=== PATIENT | male | born 1940 | race Caucasian/White ===

== ENCOUNTER 2025-01-28 18:19 | Observation (INO) ==
[2025-01-28 20:43] LABS: MEAN PLATELET VOLUME 8.0 fL (7.4-11.0); RED CELL DISTRIBUTION WIDTH 12.9 % (11.6-16.5)
[2025-01-28 20:50] LABS: COR CA(FOR HYPOALB) 9.4 mg/dL (8.5-10.1); CREATININE 1.56 mg/dL (0.70-1.30); eGFR NON BLACK RACES 46 (>60)
[2025-01-28] MEDS ORDERED: VALIUM PO PRN (20:52)
[2025-01-28] MEDS: NS 1,000 ML IV 1,000 ML IV SCH (22:09)
[2025-01-28] MEDS: ZOSYN VIAL 3.375 GRAMS 3.375 G in NS 100 ML IV 100 ML IV SCH (22:10)
[2025-01-28] MEDS: NS 250 ML IV 25 ML IV PRN (22:10)
[2025-01-28] MEDS: MORPHINE SULFATE INJ 2 MG INJ IVP PRN (22:11)
[2025-01-28] MEDS: PROTONIX INJ 40 MG VIAL IVP SCH (22:13)
[2025-01-28] MEDS: ZOFRAN INJ 4 MG VIAL IVP PRN (22:13)
[2025-01-28] MEDS: ZESTRIL TAB 10 MG PO ONE (23:50)
[2025-01-29] MEDS ORDERED: ROBAXIN PO PRN
[2025-01-29] MEDS: FLOMAX PO SCH ×2 (00:47→10:02)
[2025-01-29 01:53] LABS: BLOOD/HEMOGLOBIN,URINE 2+ (NEGATIVE); LEUKOCYTE ESTERASE ,URINE NEGATIVE (NEGATIVE); NITRITES,URINE NEGATIVE (NEGATIVE)
[2025-01-29 01:54] LABS: APPEARANCE,URINE SLIGHTLY HAZY (CLEAR)
[2025-01-29 02:05] LABS: SQUAMOUS EPITHELIAL CELL,UR NEGATIVE /HPF (NEGATIVE)
[2025-01-29 05:12] LABS: MEAN PLATELET VOLUME 9.0 fL (7.4-11.0); RED CELL DISTRIBUTION WIDTH 12.8 % (11.6-16.5)
[2025-01-29 05:28] LABS: COR CA(FOR HYPOALB) 9.4 mg/dL (8.5-10.1); CREATININE 1.50 mg/dL (0.70-1.30); eGFR NON BLACK RACES 48 (>60)
--- NOTE | 2025-01-29 05:36 | RAD ---
EXAM: KUB HISTORY: Colitis; SX: LEFT ROTATOR CUFF X 12 DAYS AGO COMPARISON: None FINDINGS: Evaluation of the abdomen demonstrates a nonobstructive bowel gas pattern. Moderate colonic fecal burden. No evidence of pneumoperitoneum. No pathologic soft tissue calcification. No acute osseous abnormality. Residual contrast in the bladder lumen. IMPRESSION: No acute abdominal process. THIS IS AN ELECTRONICALLY VERIFIED FINAL REPORT 01/29/2025 5:32 AM - Electronically signed by Elmer Lincoln MD
[2025-01-29 06:35] LABS: CRYPTOSPORIDIUM PARVUM ANTIGEN NEGATIVE (NEGATIVE); GIARDIA LAMBLIA ANTIGEN NEGATIVE (NEGATIVE)
[2025-01-29 07:42] VITALS: BMI 26.3
[2025-01-29] MEDS ORDERED: REVATIO PO SCH (09:00)
[2025-01-29] MEDS ORDERED: HYDROCHLOROTHIAZIDE 25 MG TAB PO SCH (09:00)
[2025-01-29] MEDS ORDERED: PHARMACY CONSULT XX SCH (10:00)
[2025-01-29] MEDS: LOVENOX INJ 40 MG SYR SC SCH (10:01)
[2025-01-29] MEDS: ZEBETA TAB 5 MG PO SCH (10:03)
[2025-01-29] MEDS: SENOKOT PO SCH (10:03)
[2025-01-29] MEDS: ZOCOR TAB 40 MG PO SCH (10:03)
[2025-01-29] MEDS: PROCTOFOAM HC EXT SCH (10:04)
[2025-01-29] MEDS: ROXICODONE TAB 5 MG PO PRN (12:54)
[2025-01-29] MEDS: ROBAXIN PO SCH (12:55)
--- NOTE | 2025-01-29 17:26 | DR.H&P ---
H&P History & Physical for Day of: H&P Date: 01/28/25 Chief Complaint Chief Complaint: abdominal pain, diarrhea, fever, urinary retention History of Present Illness History of Present Illness: PT IS 84 WM, DIRECT ADMIT FROM DR GOLDBERG'S OFFICE WITH CO SEVERE ABDOMINAL PAIN WITH DIARRHEA, FEVER, CHILLS FOR 3 DAYS. PT WAS SEEN IN ER IN [place] X 2. PT HAD CT ABD/PELVIS IN ER AND GIVEN BACTRIM DS. PT STATES HE HAD LEFT ROTATOR CUFF REPAIR 2 WEEKS AGO. PT HAD BEEN ON PO PAIN CONTROL, RESULTING IN SEVERE CONSTIPATION AND URINARY BLADDER RETENTION. PT ADMITTED FOR EVALUATION AND TREATMENT OF ACUTE ILLNESS. Past Surgical History Surgical History: Ortho Surgery Family History Family Medical History: Cancer, [place] and Hypertension Social History Does patient currently use any type of tobacco product: No Type of Tobacco Use: None Does any household member use tobacco: No Alcohol Use: None Drug Use: None Medications Home Medications: Home Medications Medication Instructions Recorded Confirmed Type levothyroxine 75 mcg tablet 75 mcg PO QDAY 11/28/24 History sildenafil 100 mg tablet 100 mg PO QDAY 11/28/2401/07 History simvastatin 80 mg tablet 80 mg PO QDAY 11/28/2401/28 History tamsulosin 0.4 mg capsule 0.4 mg PO QPM 11/28/2401/28 History lisinopril 10 mg tablet 10 mg PO BID 01/28/25 History methocarbamol 750 mg tablet 750 mg PO TID PRN muscle s pasm 01/28/25 01/28/25 History Allergies Allergies Allergy/AdvReac Type Severity Reaction Status Date / Time No Known Drug Allergies Allergy Unknown Verified 01/28/25 21:41 codeine AdvReac Severe Verified 01/28/25 21:41 Labs 01/29/25 04:13 01/29/25 04:13 Labs: 01/29/25 05:20 Stool - Final Laboratory WBC 10.0 X10^3/uL (3.6-10.0) 01/29/25 04:13 RBC 3.84 X10^6/uL (4.7-6.0) L 01/29/25 04:13 Hgb 11.3 g/dL (13.5-18.0) L 01/29/25 04:13 Hct 32.6 % (42.0-54.0) L 01/29/25 04:13 MCV 84.9 fL (80.0-100.0) 01/29/25 04:13 MCH 29.5 pg (27.0-34.0) 01/29/25 04:13 MCHC 34.7 g/dL (33.0-35.0) 01/29/25 04:13 RDW 12.8 % (11.6-16.5) 01/29/25 04:13 Plt Count 211 X10^3/uL (150.0-450.0) 01/29/25 04:13 MPV 9.0 fL (7.4-11.0) 01/29/25 04:13 Neut % (Auto) 80.5 % (42.0-75.0) H 01/29/25 04:13 Lymph % (Auto) 9.0 % (21.0-51.0) L 01/29/25 04:13 [place] % (Auto) 7.9 % (0.0-13.0) 01/29/25 04:13 Eos % (Auto) 2.2 % (0.9-2.9) 01/29/25 04:13 Baso % (Auto) 0.4 % (0.2-1.0) 01/29/25 04:13 Neut # (Auto) 8.1 x10^3/uL (2.2-4.8) H 01/29/25 04:13 Lymph # (Auto) 0.9 X10^3/uL (1.3-2.9) L 01/29/25 04:13 [place] # (Auto) 0.8 x10^3/uL (0.3-0.8) 01/29/25 04:13 Eos # (Auto) 0.2 x10^3/uL (0.0-0.2) 01/29/25 04:13 Baso # (Auto) 0.0 X10^3/uL (0.0-0.1) 01/29/25 04:13 Absolute Nucleated RBC 0.0 /100WBC 01/29/25 04:13 Sodium 139 mmol/L (136-145) 01/29/25 04:13 Corrected Sodium TNP 01/29/25 04:13 Potassium 4.1 mmol/L (3.5-5.1) 01/29/25 04:13 Chloride 101 mmol/L (98-107) 01/29/25 04:13 Carbon Dioxide 28.5 mmol/L (21-32) 01/29/25 04:13 BUN 19 mg/dL (7-18) H 01/29/25 04:13 Creatinine 1.50 mg/dL (0.70-1.30) H 01/29/25 04:13 Est GFR (MDRD) Af Amer 58 (>60) L 01/29/25 04:13 Est GFR (MDRD) Non-Af 48 (>60) L 01/29/25 04:13 Glucose 83 mg/dL (65-99) 01/29/25 04:13 Calcium 8.5 mg/dL (8.5-10.1) 01/29/25 04:13 Corrected Calcium 9.4 mg/dL (8.5-10.1) 01/29/25 04:13 Magnesium 2.5 mg/dL (2.0-2.9) 01/28/25 20:29 Total Bilirubin 0.70 mg/dL (0.2-1.0) 01/29/25 04:13 AST 23 Units/L (15-37) 01/29/25 04:13 ALT 24 Units/L (12-78) 01/29/25 04:13 Alkaline Phosphatase 81 Units/L (46-116) 01/29/25 04:13 Total Protein 6.3 g/dL (6.4-8.2) L 01/29/25 04:13 Albumin 2.9 g/dL (3.4-5.0) L 01/29/25 04:13 Globulin 3.4 g/dL (2.5-4.5) 01/29/25 04:13 Albumin/Globulin Ratio 0.9 Ratio (1.1-2.1) L 01/29/25 04:13 Specimen Type Catherized urine 01/29/25 01:25 Urine Color Yellow (YELLOW) 01/29/25 01:25 Urine Appearance Slightly hazy (CLEAR) 01/29/25 01:25 Urine pH 7.0 (5.0 - 8.0) 01/29/25 01:25 Ur Specific [place] 1.010 (1.000-1.030) 01/29/25 01:25 Urine Protein 2+ (NEGATIVE) 01/29/25 01:25 Urine Glucose (UA) Negative (NEGATIVE) 01/29/25 01:25 Urine Ketones Negative (NEGATIVE) 01/29/25 01:25 Urine Blood 2+ (NEGATIVE) 01/29/25 01:25 Urine Nitrite Negative (NEGATIVE) 01/29/25 01:25 Urine Bilirubin Negative (NEGATIVE) 01/29/25 01:25 Urine Urobilinogen Normal (NORMAL) 01/29/25 01:25 Ur Leukocyte Esterase Negative (NEGATIVE) 01/29/25 01:25 Urine RBC 10-20 /HPF (0-3) A 01/29/25 01:25 Urine WBC 3-5 /HPF (0-5) 01/29/25 01:25 Ur Squamous Epith Cells Negative /HPF (NEGATIVE) 01/29/25 01:25 Urine Bacteria Negative /HPF (NEGATIVE) 01/29/25 01:25 Ur Culture Indicated? No/not indicated 01/29/25 01:25 Stl Occult Blood (IFOB) Negative (NEGATIVE) 01/29/25 05:20 Stool for White Cells Positive (NEGATIVE) A 01/29/25 05:20 Stl C. diff Tox B Gene Negative (NEGATIVE) 01/29/25 05:20 Stl C. diff [id number] Presumptive negative (NEGATIVE) 01/29/25 05:20 Cryptosporid parvum Ag Negative (NEGATIVE) 01/29/25 05:20 Giardia lamblia Ag Negative (NEGATIVE) 01/29/25 05:20 Review of Systems Constitutional: Fever, Chills and Weakness Eyes: No Symptoms Reported ENT: No Symptoms Reported Respiratory: denies SOB with Excertion Cardiovascular: No Symptoms Reported Gastrointestinal: Abdominal Pain, Diarrhea and Constipation Genitourinary: Retention Musculoskeletal: Arm Pain Skin: No Symptoms Reported Physical Exam Vital Signs: Vital Signs Temperature 97.9 F Pulse Rate 70 Pulse Rate 65 Pulse Rate 70 Pulse Rate 67 Pulse Rate 66 Pulse Rate 65 Respiratory Rate 18 Respiratory Rate 15 Respiratory Rate 23 Respiratory Rate 20 Respiratory Rate 28 Respiratory Rate 20 Respiratory Rate 20 Blood Pressure 142/67 Blood Pressure 123/59 Blood Pressure 128/59 Blood Pressure 135/60 Blood Pressure 130/60 Blood Pressure 121/56 O2 Sat by Pulse Oximetry 93 O2 Sat by Pulse Oximetry 94 O2 Sat by Pulse Oximetry 92 O2 Sat by Pulse Oximetry 95 O2 Sat by Pulse Oximetry 92 O2 Sat by Pulse Oximetry 94 Oriented: Normal Eyes: Normal Nose: Normal Throat: Dry Respiratory: RLL Diminished and LLL Diminished Cardiovascular: Normal : Other ("CANNOT URINATE") Auscultation: Bowel Sounds: Decreased Tenderness: Diffuse, LUQ, LLQ and Suprapubic Skin: Decreased Turgur Musculoskeletal: Left, Arm and Motor Deficit Psychiatric: Anxiety Mood Description: Anxious Affect: Anxious Speech Pattern: Clear and Appropriate Assessment/Plan (1) Colitis: Status: Acute Plan: ADMIT, IV HYDRATION, IV ATBX STOOL STUDIES OBTAIN CT RESULTS FROM [facility] PAIN CONTROL, PT/OT (2) UTI (urinary tract infection): Status: Acute (3) Hypertension: Status: Acute (4) Hypothyroid: Status: Acute (5) BPH NOS w ur obs/LUTS: Status: Acute (6) S/P left rotator cuff repair: Status: Acute
[2025-01-29] MEDS: TYLENOL 500 MG TAB EXTRA STRENGTH PO PRN (22:55)
[2025-01-30 05:01] LABS: MEAN PLATELET VOLUME 8.6 fL (7.4-11.0); RED CELL DISTRIBUTION WIDTH 12.8 % (11.6-16.5)
[2025-01-30 05:16] LABS: COR CA(FOR HYPOALB) 9.3 mg/dL (8.5-10.1); CREATININE 1.78 mg/dL (0.70-1.30); eGFR NON BLACK RACES 39 (>60)
--- NOTE | 2025-01-30 07:09 | RAD ---
EXAM: KUB HISTORY: CONSTIPATION ; CATARACTS, HTN, COLITIS, CONSTIPATION SX: CATARACTS, ORTHO, LEFT SHOULDER COMPARISON: None. TECHNIQUE: Two views FINDINGS: Lower pelvis/pubic symphysis not included on the films. Nonobstructive bowel gas pattern. [id number] stool. There is less stool compared with the prior study. No free air, dilated loops or significant air-fluid levels. No abnormal calcifications in the distribution of the kidneys or ureters. Bony structures are unchanged. EKG leads overlie the chest. Technical artifact overlies the left mid abdomen. There is less contrast in the bladder compared to the prior study. IMPRESSION: No acute findings. THIS IS AN ELECTRONICALLY VERIFIED FINAL REPORT 01/30/2025 7:06 AM - Electronically signed by Adalid Fan MD
[2025-01-31 05:00] LABS: MEAN PLATELET VOLUME 9.1 fL (7.4-11.0); RED CELL DISTRIBUTION WIDTH 12.8 % (11.6-16.5)
[2025-01-31 05:20] LABS: COR CA(FOR HYPOALB) 9.0 mg/dL (8.5-10.1); CREATININE 1.57 mg/dL (0.70-1.30); eGFR NON BLACK RACES 45 (>60)
--- NOTE | 2025-01-31 07:29 | RAD ---
EXAM: ACUTE ABDOMEN SERI ES HISTORY: CONSTIPATION ; CATARACTS, HTN, COLITIS, CONSTIPATION SX: CATARACTS, ORTHO, LEFT SHOULDER COMPARISON: Chest x-ray 11/15/2024 TECHNIQUE: One view of the chest and three views of the abdomen. FINDINGS: Heart size is normal. Patchy peripheral infiltrates may represent atypical pneumonia including COVID. No pneumothorax. Skin fold projects over the right upper chest. Hilar and mediastinal structures and bony structures unremarkable and unchanged. EKG leads overlie the chest. The pubic symphysis is not included on the study. The patient's arm obscures portions of the left mid abdomen. The patient has history of rotator cuff surgery. The bowel gas pattern is normal. No free air, dilated loops or significant air-fluid levels. Moderate stool throughout the colon. No abnormal calcification in the distribution of the kidneys or ureters. IMPRESSION: Peripheral opacities in the lungs may be seen with atypical pneumonia including COVID. Follow-up to resolution recommended. Limited study. Constipation. No acute findings. Pubic symphysis not included on the study. THIS IS AN ELECTRONICALLY VERIFIED FINAL REPORT 01/31/2025 7:26 AM - Electronically signed by Adalid Fan MD
[2025-01-31] MEDS: LASIX PO ONE (08:50)
[2025-01-31] MEDS: K-DUR TAB 20 MEQ PO ONE (08:52)
[2025-01-31 10:03] VITALS: RESP 18
[2025-01-31 10:07] VITALS: BP 126/64; PULSE 64; TEMP 97.7; O2SAT 94
== END 2025-01-31 10:10 | disposition home health service (06) ==
LOC: ICU
PROVIDERS: ADMIT Internal Medicine; ATTEND Internal Medicine
DX: R50.9 Fever, unspecified; K52.89 Other specified noninfective gastroenteritis and colitis; N13.8 Other obstructive and reflux uropathy; I10 Essential (primary) hypertension; K59.03 Drug induced constipation; T40.2X5A Adverse effect of other opioids, initial encounter; Z98.890 Other specified postprocedural states; R19.7 Diarrhea, unspecified; N40.1 Benign prostatic hyperplasia with lower urinary tract symptoms; E03.8 Other specified hypothyroidism; Z79.899 Other long term (current) drug therapy; N39.0 Urinary tract infection, site not specified; R10.84 Generalized abdominal pain; R26.89 Other abnormalities of gait and mobility